=== PATIENT | male | born 1940 | race Caucasian/White ===

== ENCOUNTER 2022-04-17 13:25 | Inpatient (IN) | payer MEDICARE, OTHER ==
[~2022-04-17] VITALS: Ht 172.7 cm; Wt 76.9 kg
[2022-04-17 14:08] LABS: BASOPHILS % (AUTO) 0.5 % (0.0-5.0); EOSINOPHILS % (AUTO) 0.2 % (0.0-8.0); HEMATOCRIT 41.9 % (42-54); LYMPHOCYTES % (AUTO) 5.4 % (21.0-51.0); MEAN CORPUSCULAR HEMOGLOBIN 28.2 pg (27.0-33.0); MEAN CORPUSCULAR HGB CONC 32.5 g/dL (32.0-36.0); MEAN CORPUSCULAR VOLUME 86.7 fL (79-99); MONOCYTES % (AUTO) 11.1 % (3.0-13.0); NEUTROPHILS % (AUTO) 82.5 % (40.0-77.0); PLATELET COUNT (AUTO) 252 K/uL (130-400); RED BLOOD CELL COUNT(AUTO) 4.83 MIL/uL (4.50-6.20); RED CELL DISTRIBUTION WIDTH 15.1 % (11.0-15.5); WHITE BLOOD COUNT (AUTO) 9.8 K/uL (4.8-10.8)
[2022-04-17 14:18] LABS: INR 1.05 (0.85-1.15); PROTHROMBIN TIME 11.4 SEC (9.6-11.6)
[2022-04-17 14:20] LABS: PARTIAL THROMBOPLASTIN TIME 27.8 SEC (26.3-35.5)
[2022-04-17 14:24] LABS: APPEARANCE,URINE Cloudy (CLEAR); BILIRUBIN,URINE Negative (NEGATIVE); COLOR,URINE Dark Yellow (YELLOW); GLUCOSE, URINE (UA) Negative (NEGATIVE); KETONES,URINE Trace mg/dL (NEGATIVE); LEUKOCYTE ESTERASE ,URINE Small (NEGATIVE); NITRATE,URINE Negative (NEGATIVE); OCCULT BLOOD,URINE Small (NEGATIVE); PH,URINE 5.5 (5.0-8.0); PROTEIN,URINE Trace mg/dL (NEGATIVE)
[2022-04-17] MEDS ORDERED: ACETAMINOPHEN 500 MG TABLET PO ONE (14:30)
[2022-04-17] MEDS ORDERED: LEVOFLOXACIN 750 MG/D5W 150 ML 150 ML IV ONE (14:30)
[2022-04-17] MEDS ORDERED: 0.9%NACL 1000ML 1,000 ML IV ONE (14:30)
[2022-04-17 14:38] LABS: ALBUMIN 3.4 g/dL (3.5-5.0); TOTAL PROTEIN, SERUM 6.9 g/dL (6.0-8.3)
[2022-04-17 14:41] LABS: BACTERIA,URINE Few /HPF (None Seen); MUCUS,URINE Few LPF (None Seen); SQUAMOUS EPITHELIAL CELL,UR Rare /HPF (0-2)
[2022-04-17] MEDS ORDERED: FAMO20TA8 PO (16:05)
[2022-04-17] MEDS ORDERED: ROSU20TA31 PO (16:05)
[2022-04-17] MEDS ORDERED: TIOT4MIS3 IH (16:05)
[2022-04-17] MEDS ORDERED: IPRA3AMP24 IH (16:05)
[2022-04-17] MEDS ORDERED: METO-408 PO (16:05)
[2022-04-17] MEDS ORDERED: ASPI-1197 PO (16:05)
[2022-04-17] MEDS ORDERED: ALBU90AE2 IH (16:05)
[2022-04-17] MEDS ORDERED: TAMS-1 PO (16:05)
[2022-04-17] MEDS ORDERED: LACTULOSE 20 GM/30 ML UDCUP PO PRN (17:00)
[2022-04-17] MEDS ORDERED: CLONIDINE HCL 0.1 MG TABLET PO PRN (17:00)
[2022-04-17] MEDS ORDERED: NOREPINEPHRIN 4MG/NS 250ML 250 ML IV SCH (17:00)
[2022-04-17] MEDS ORDERED: ACETAMINOPHEN 325 MG TAB PO PRN (17:00)
[2022-04-17] MEDS ORDERED: ONDANSETRON 4MG INJ IVP PRN (17:00)
[2022-04-17] MEDS ORDERED: ACETAMINOPHEN 650 MG SUPPOSITORY RC PRN (17:00)
[2022-04-17] MEDS ORDERED: 0.9%NACL 1000ML 1,000 ML IV SCH (17:00)
[2022-04-17] MEDS: ZOSYN 3.375GM +NS 50ML IV SCH (17:52)
[2022-04-17 21:00] VITALS: BP 133/77
[2022-04-17 22:30] VITALS: BP 135/77
[2022-04-17 22:31] VITALS: BP 126/81
[2022-04-18] MEDS ORDERED: ALBUTEROL INHALER 90MCG/INH IH PRN
[2022-04-18] MEDS ORDERED: FUROSEMIDE 40MG VIAL IV ONE
[2022-04-18] MEDS ORDERED: IPRATROPIUM 0.5 MG/2.5 ML INH IH PRN
[2022-04-18 00:12] LABS: ABG BASE EXCESS -5.4 mmol/L (-2.0-3.0); ABG HCO3 19.1 mmol/L (21.0-28.0); ABG OXYGEN SATURATION 95.4 % (95.0-99.0); ABG PCO2 34 mmHg (35-48)
[2022-04-18] MEDS ORDERED: ALBUTEROL INHALER 90MCG/INH IH ONE (00:21)
[2022-04-18] MEDS: LORAZEPAM 0.5 MG TABLET PO PRN (00:30)
[2022-04-18] MEDS: ZOSYN 3.375GM +NS 50ML IV SCH ×3 (00:34→16:19)
[2022-04-18] MEDS: ALBUTEROL INHALER 90MCG/INH IH SCH ×4 (00:43→18:00)
[2022-04-18] MEDS ORDERED: ZIPRASIDONE MESYLATE 20 MG/VIAL IM ONE (01:21)
[2022-04-18] MEDS: ZIPRASIDONE MESYLATE 20 MG/VIAL IM SCH ×2 (02:28→07:53)
[2022-04-18 04:43] LABS: BASOPHILS % (AUTO) 0.3 % (0.0-5.0); LYMPHOCYTES % (AUTO) 6.1 % (21.0-51.0); MEAN CORPUSCULAR HGB CONC 32.4 g/dL (32.0-36.0); MEAN CORPUSCULAR VOLUME 86.4 fL (79-99); NEUTROPHILS % (AUTO) 84.3 % (40.0-77.0); PLATELET COUNT (AUTO) 217 K/uL (130-400); RED CELL DISTRIBUTION WIDTH 15.3 % (11.0-15.5); WHITE BLOOD COUNT (AUTO) 8.7 K/uL (4.8-10.8)
[2022-04-18 04:57] LABS: CREATININE 0.9 mg/dL (0.5-1.5); MAGNESIUM 1.5 mg/dL (1.80-2.40); PHOSPHORUS 3.1 mg/dL (2.5-4.9); POTASSIUM 3.5 mmol/L (3.5-5.1)
[2022-04-18 05:23] VITALS: BP 118/77
[2022-04-18 07:00] VITALS: BP 120/74
[2022-04-18] MEDS: LEVOFLOXACIN 500 MG/D5W 100 ML IV SCH (08:07)
[2022-04-18] MEDS: PANTOPRAZOLE 40 MG/VIAL IVP SCH (08:08)
[2022-04-18] MEDS: THIAMINE HCL 100 MG/ML 2ML VIAL IV SCH (08:08)
[2022-04-18] MEDS: ENOXAPARIN SODIUM 40 MG/0.4 ML SYRINGE SQ SCH (08:09)
[2022-04-18] MEDS ORDERED: MIDODRINE HCL 5 MG TABLET PO SCH (09:00)
[2022-04-18] MEDS ORDERED: MIDODRINE HCL 5 MG TABLET PO PRN (10:00)
[2022-04-18] MEDS ORDERED: MAGNESIUM 2GM PREMIX 50ML 50 ML IV PRN (10:00)
[2022-04-18] MEDS ORDERED: POTASSIUM CHLORIDE 10% ELIXIR 20 MEQ/15 ML UDCUP PO PRN (10:00)
[2022-04-18] MEDS ORDERED: POTASSIUM CHLORIDE 20MEQ/100ML 100 ML IV PRN (10:00)
[2022-04-18] MEDS: KCL 20 MEQ ERTAB PO PRN ×2 (10:21→12:19)
[2022-04-18] MEDS: M.V.I. IV [ADULT] 10 ML, FOLIC ACID 1 MG, THIAMINE HCL 100 MG in 0.9%NACL 1000ML 1,000 ML IV SCH (10:21)
[2022-04-18 11:00] VITALS: BP 128/78
[2022-04-18 15:00] VITALS: BP 139/91
[2022-04-18 19:00] VITALS: BP 150/84
[2022-04-19] VITALS: BP 129/80
[2022-04-19] MEDS ORDERED: 0.9%NACL 50ML 50 ML IV ONE (00:45)
[2022-04-19] MEDS: ZOSYN 3.375GM +NS 50ML IV SCH ×3 (00:50→16:17)
[2022-04-19] MEDS: ALBUTEROL INHALER 90MCG/INH IH SCH ×4 (01:28→17:43)
[2022-04-19 03:09] VITALS: BP 133/68
[2022-04-19 04:26] LABS: HEMATOCRIT 34.7 % (42-54); MEAN CORPUSCULAR HEMOGLOBIN 28.6 pg (27.0-33.0); MEAN CORPUSCULAR HGB CONC 32.6 g/dL (32.0-36.0); MEAN CORPUSCULAR VOLUME 87.8 fL (79-99); RED BLOOD CELL COUNT(AUTO) 3.95 MIL/uL (4.50-6.20); RED CELL DISTRIBUTION WIDTH 15.4 % (11.0-15.5); WHITE BLOOD COUNT (AUTO) 4.5 K/uL (4.8-10.8)
[2022-04-19 04:27] LABS: CREATININE 0.8 mg/dL (0.5-1.5); MAGNESIUM 1.8 mg/dL (1.80-2.40); POTASSIUM 3.9 mmol/L (3.5-5.1)
[2022-04-19] MEDS: PANTOPRAZOLE 40 MG/VIAL IVP SCH (07:36)
[2022-04-19] MEDS: LEVOFLOXACIN 500 MG/D5W 100 ML IV SCH (07:36)
[2022-04-19] MEDS: THIAMINE HCL 100 MG/ML 2ML VIAL IV SCH (07:37)
[2022-04-19] MEDS: ENOXAPARIN SODIUM 40 MG/0.4 ML SYRINGE SQ SCH (07:38)
[2022-04-19] MEDS: M.V.I. IV [ADULT] 10 ML, FOLIC ACID 1 MG, THIAMINE HCL 100 MG in 0.9%NACL 1000ML 1,000 ML IV SCH (07:38)
[2022-04-19 07:54] VITALS: BP 132/90
[2022-04-19] MEDS: DEXAMETHASONE 4 MG TAB PO SCH (08:51)
[2022-04-19 11:40] VITALS: BP 136/86
[2022-04-19 15:38] VITALS: BP 129/82
[2022-04-19 19:00] VITALS: BP 137/86
[2022-04-20] VITALS: BP 145/72
[2022-04-20] MEDS: ZOSYN 3.375GM +NS 50ML IV SCH ×3 (01:42→16:21)
[2022-04-20] MEDS: ALBUTEROL INHALER 90MCG/INH IH SCH ×4 (01:42→17:01)
[2022-04-20 03:00] VITALS: BP 151/95
[2022-04-20 03:42] LABS: HEMATOCRIT 36.2 % (42-54); MEAN CORPUSCULAR HEMOGLOBIN 27.8 pg (27.0-33.0); MEAN CORPUSCULAR HGB CONC 32.6 g/dL (32.0-36.0); MEAN CORPUSCULAR VOLUME 85.4 fL (79-99); RED BLOOD CELL COUNT(AUTO) 4.24 MIL/uL (4.50-6.20); RED CELL DISTRIBUTION WIDTH 15.3 % (11.0-15.5); WHITE BLOOD COUNT (AUTO) 3.5 K/uL (4.8-10.8)
[2022-04-20 03:53] LABS: CREATININE 0.7 mg/dL (0.5-1.5); POTASSIUM 3.6 mmol/L (3.5-5.1)
[2022-04-20] MEDS: PANTOPRAZOLE 40 MG/VIAL IVP SCH (07:10)
[2022-04-20] MEDS: ENOXAPARIN SODIUM 40 MG/0.4 ML SYRINGE SQ SCH (07:10)
[2022-04-20] MEDS: KCL 20 MEQ ERTAB PO PRN ×2 (07:11→17:00)
[2022-04-20] MEDS: THIAMINE HCL 100 MG/ML 2ML VIAL IV SCH (07:11)
[2022-04-20] MEDS: DEXAMETHASONE 4 MG TAB PO SCH (07:12)
[2022-04-20] MEDS: LEVOFLOXACIN 500 MG/D5W 100 ML IV SCH (07:14)
[2022-04-20 07:28] VITALS: BP 156/85
[2022-04-20] MEDS ORDERED: FAMOTIDINE 20MG TAB PO PRN (08:30)
[2022-04-20] MEDS ORDERED: ALBUTEROL INHALER 90MCG/INH IH PRN (08:30)
[2022-04-20] MEDS ORDERED: IPRATROPIUM/ALBUTEROL SULFATE 3 ML SOLUTION IH PRN (08:30)
[2022-04-20] MEDS: OLODATEROL HCL IH SCH (09:00)
[2022-04-20] MEDS ORDERED: TAMSULOSIN HCL 0.4 MG CAP.ER.24H PO SCH (09:00)
[2022-04-20] MEDS: TIOTROPIUM BR IH SCH (09:00)
[2022-04-20] MEDS: METOPROLOL SUCCINATE 25 MG TAB.SR.24H PO SCH (09:08)
[2022-04-20] MEDS: ASPIRIN 81MG CHEW TAB PO SCH (09:09)
[2022-04-20] MEDS: M.V.I. IV [ADULT] 10 ML, FOLIC ACID 1 MG, THIAMINE HCL 100 MG in 0.9%NACL 1000ML 1,000 ML IV SCH (11:25)
[2022-04-20 11:49] VITALS: BP 153/82
[2022-04-20 16:22] VITALS: BP 143/89
[2022-04-20] MEDS ORDERED: RISPERIDONE 1 MG TABLET PO STA (17:12)
[2022-04-20] MEDS ORDERED: RISPERIDONE 1 MG TABLET ONE (17:17)
[2022-04-20 19:00] VITALS: BP 107/73
[2022-04-20] MEDS: RISPERIDONE 1 MG TABLET PO SCH (20:18)
[2022-04-20] MEDS: HYDROXYZINE 25 MG TABLET PO SCH (20:18)
[2022-04-20] MEDS: QUETIAPINE FUMARATE 25 MG TAB PO SCH (20:18)
[2022-04-20] MEDS: RIVASTIGMINE 4.6MG/24HR PATCH TD SCH (20:18)
[2022-04-20] MEDS ORDERED: ATORVASTATIN 40 MG TABLET PO SCH (21:00)
[2022-04-20] MEDS: LORAZEPAM 0.5 MG TABLET PO PRN (21:38)
[2022-04-21] VITALS: BP 93/65
[2022-04-21] MEDS ORDERED: DiphenhydrAMINE HCL 50 MG/ML VIAL IV ONE
[2022-04-21] MEDS: ALBUTEROL INHALER 90MCG/INH IH SCH ×3 (00:04→11:59)
[2022-04-21] MEDS: ZOSYN 3.375GM +NS 50ML IV SCH ×2 (00:20→09:18)
[2022-04-21 03:00] VITALS: BP 145/97
[2022-04-21] MEDS ORDERED: ZOLPIDEM TARTRATE 5 MG TAB PO ONE (03:00)
[2022-04-21 07:37] VITALS: BP 152/94
[2022-04-21] MEDS: TIOTROPIUM BR IH SCH (09:00)
[2022-04-21] MEDS: OLODATEROL HCL IH SCH (09:00)
[2022-04-21] MEDS: LEVOFLOXACIN 500 MG/D5W 100 ML IV SCH (09:18)
[2022-04-21] MEDS: RIVASTIGMINE 4.6MG/24HR PATCH TD SCH (09:18)
[2022-04-21] MEDS: PANTOPRAZOLE 40 MG/VIAL IVP SCH (09:19)
[2022-04-21] MEDS: THIAMINE HCL 100 MG/ML 2ML VIAL IV SCH (09:19)
[2022-04-21] MEDS: ENOXAPARIN SODIUM 40 MG/0.4 ML SYRINGE SQ SCH (09:19)
[2022-04-21] MEDS: RISPERIDONE 1 MG TABLET PO SCH (09:20)
[2022-04-21] MEDS: DEXAMETHASONE 4 MG TAB PO SCH (09:20)
[2022-04-21] MEDS: QUETIAPINE FUMARATE 25 MG TAB PO SCH (09:21)
[2022-04-21] MEDS: ASPIRIN 81MG CHEW TAB PO SCH (09:21)
[2022-04-21 09:22] LABS: HEMATOCRIT 37.3 % (42-54); RED BLOOD CELL COUNT(AUTO) 4.39 MIL/uL (4.50-6.20); RED CELL DISTRIBUTION WIDTH 15.7 % (11.0-15.5)
[2022-04-21] MEDS: METOPROLOL SUCCINATE 25 MG TAB.SR.24H PO SCH (09:22)
[2022-04-21] MEDS: HYDROXYZINE 25 MG TABLET PO SCH (09:23)
[2022-04-21 09:35] LABS: CREATININE 0.8 mg/dL (0.5-1.5); POTASSIUM 3.5 mmol/L (3.5-5.1)
[2022-04-21] MEDS: M.V.I. IV [ADULT] 10 ML, FOLIC ACID 1 MG, THIAMINE HCL 100 MG in 0.9%NACL 1000ML 1,000 ML IV SCH (11:21)
[2022-04-21] MEDS ORDERED: DEXA6TAB7 PO (11:42)
[2022-04-21 12:14] VITALS: BP 135/88
[2022-04-21] MEDS ORDERED: TAMSULOSIN HCL 0.4 MG CAP.ER.24H PO SCH (21:00)
[2022-04-21] MEDS ORDERED: RISP1TAB98 PO (22:57)
== END 2022-04-21 14:16 | disposition home or self-care (01) | DRG 871 ==
LOC: EDH 13:25 → EDHIP 16:39 → 2BH 21:19 → 2AH 22:56
PROVIDERS: ADMIT Internal Medicine; ATTEND Internal Medicine
DX: A41.9 Sepsis, unspecified organism (principal); G93.41 Metabolic encephalopathy; U07.1 COVID-19; J12.82 Pneumonia due to coronavirus disease 2019; R65.21 Severe sepsis with septic shock; J44.0 Chronic obstructive pulmonary disease with (acute) lower respiratory infection; E11.9 Type 2 diabetes mellitus without complications; E78.00 Pure hypercholesterolemia, unspecified; F03.90 Unspecified dementia, unspecified severity, without behavioral disturbance, psychotic disturbance, mood disturbance, and anxiety; I25.10 Atherosclerotic heart disease of native coronary artery without angina pectoris; Z87.891 Personal history of nicotine dependence; Z95.5 Presence of coronary angioplasty implant and graft
CPT/HCPCS: 36415; 36600; 71045; 76870; 80048; 80053; 81001; 82435; 82550; 82803; 82947; 83605; 83735; 83880; 84100; 84132; 84295; 84484; 85018; 85025; 85027; 85610; 85730; 87040; 87088; 87635; 87804; 93005; 93306; C9113; C9803; G0378; J1200; J1650; J1940; J1956; J2543; J3411; J3475; J3480; J3486; J3490; J7030; J8540

== ENCOUNTER 2022-04-30 00:51 | Emergency (ER) | payer MEDICARE ==
[~2022-04-30] VITALS: Ht 170.2 cm; Wt 74.8 kg
[~2022-04-30 00:51] MED LIST: ALBU90AE2 IH; ASPI-1197 PO; DEXA6TAB7 PO; FAMO20TA8 PO; IPRA3AMP24 IH; METO-408 PO; RISP1TAB98 PO; ROSU20TA31 PO; TAMS-1 PO; TIOT4MIS3 IH
[2022-04-30] MEDS ORDERED: 0.9%NACL 1000ML 1,000 ML IV ONE ×2 (01:30→02:00)
[2022-04-30 01:34] LABS: BASOPHILS % (AUTO) 0.2 % (0.0-5.0); EOSINOPHILS % (AUTO) 1.6 % (0.0-8.0); HEMATOCRIT 24.6 % (42-54); LYMPHOCYTES % (AUTO) 28.2 % (21.0-51.0); MEAN CORPUSCULAR HEMOGLOBIN 28.5 pg (27.0-33.0); MEAN CORPUSCULAR HGB CONC 32.1 g/dL (32.0-36.0); MEAN CORPUSCULAR VOLUME 88.8 fL (79-99); MONOCYTES % (AUTO) 6.3 % (3.0-13.0); NEUTROPHILS % (AUTO) 62.5 % (40.0-77.0); PLATELET COUNT (AUTO) 240 K/uL (130-400); RED BLOOD CELL COUNT(AUTO) 2.77 MIL/uL (4.50-6.20); RED CELL DISTRIBUTION WIDTH 15.2 % (11.0-15.5); WHITE BLOOD COUNT (AUTO) 11.8 K/uL (4.8-10.8)
[2022-04-30 01:48] LABS: CREATININE 1.1 mg/dL (0.5-1.5); POTASSIUM 4.6 mmol/L (3.5-5.1)
[2022-04-30 01:52] LABS: ALBUMIN 2.4 g/dL (3.5-5.0); TOTAL PROTEIN, SERUM 5.1 g/dL (6.0-8.3)
[2022-04-30 01:55] LABS: B-TYPE NATRIURETIC PEPTIDE 11 pg/mL (0-100)
[2022-04-30 02:36] LABS: APPEARANCE,URINE CLEAR (CLEAR); BILIRUBIN,URINE NEGATIVE (NEGATIVE); COLOR,URINE YELLOW (YELLOW); GLUCOSE, URINE (UA) NEGATIVE (NEGATIVE); KETONES,URINE NEGATIVE (NEGATIVE); LEUKOCYTE ESTERASE ,URINE NEGATIVE (NEGATIVE); NITRATE,URINE NEGATIVE (NEGATIVE); OCCULT BLOOD,URINE MODERATE (NEGATIVE); PROTEIN,URINE NEGATIVE (NEGATIVE); UROBILINOGEN,URINE 0.2 mg/dL (0.2-1.0)
[2022-04-30] MEDS ORDERED: IOHEXOL 350 MG/ML 100ML INFUS..BTL IV ONE ×2 (02:39→05:51)
[2022-04-30 02:46] LABS: BACTERIA,URINE Few /HPF (None Seen)
[2022-04-30] MEDS ORDERED: ZOSYN 3.375GM +NS 50ML IV SCH (03:00)
[2022-04-30] MEDS ORDERED: VANCOMYCIN 1G VIAL IVPB ONE (03:00)
[2022-04-30] MEDS ORDERED: VANCOMYCIN 1G/250ML KIT 500 ML IV ONE (03:17)
[2022-04-30] MEDS ORDERED: ONDANSETRON 4MG INJ IVP ONE (04:30)
[2022-04-30] MEDS ORDERED: MORPHINE 2 MG SYG IVP ONE (04:30)
[2022-04-30 06:00] VITALS: BP 102/66
[2022-04-30] MEDS ORDERED: EPINEPHRINE PF 1MG (1:1,000) 10 MG in 0.9% NACL 250ML 240 ML IV PRN (07:00)
[2022-04-30] MEDS ORDERED: NOREPINEPHRINE BITARTRATE 8 MG in DEXTROSE 5%-WATER 250 ML IV PRN (07:00)
[2022-04-30] MEDS ORDERED: AMINOCAPROIC ACID 5,000MG VIAL 15,000 MG in 0.9% NACL 500ML IV.SOLN 420 ML IV PRN (07:00)
== END 2022-04-30 10:01 ==
LOC: EDH 00:51
DX: I72.3 Aneurysm of iliac artery (principal); F03.90 Unspecified dementia, unspecified severity, without behavioral disturbance, psychotic disturbance, mood disturbance, and anxiety; Z95.5 Presence of coronary angioplasty implant and graft; I95.9 Hypotension, unspecified; Z79.899 Other long term (current) drug therapy; Z79.52 Long term (current) use of systemic steroids; Z79.82 Long term (current) use of aspirin; J44.9 Chronic obstructive pulmonary disease, unspecified; Z90.49 Acquired absence of other specified parts of digestive tract
CPT/HCPCS: 36430; 99285; 84484; 80053; 83880; 85025; 85378; 85018; 86850; 86900; 86901; 86923 ×3; 87040 ×2; 87077; 87186; 87804 ×2; 83605 ×2; 81001; 36415; 71045; 71270; 74174; 74176; 96365; 96361; 96375; 96368; 93005; P9016; J2405; J2543; J3370; Q9967 ×2